=== PATIENT | male | born 1975 | race Two or more races ===

== ENCOUNTER 2020-10-17 06:35 | Day surgery (SDC) | payer OTHER ==
[2020-10-17 12:51] VITALS: BP 121/81
== END 2020-10-17 13:50 | DRG 352 ==
LOC: ORM 06:35
PROVIDERS: ATTEND Surgery
PROC: 0YU50JZ Supplement Right Inguinal Region with Synthetic Substitute, Open Approach (ICD-10-PCS; principal; 2020-10-17)
DX: K40.90 Unilateral inguinal hernia, without obstruction or gangrene, not specified as recurrent (principal); Z20.822 Contact with and (suspected) exposure to COVID-19
CPT/HCPCS: C9290; J0131; J1100